=== PATIENT | female | born 1970 | race Hispanic/Latino ===

== ENCOUNTER 2024-01-05 11:10 | Emergency (ER) | payer SELFPAY ==
[2024-01-05] MEDS ORDERED: Fluorescein Opthalmic Strip ONE (12:59)
[2024-01-05] MEDS ORDERED: Proparacaine 0.5% Opth 15 ML BOT ONE (13:00)
== END 2024-01-05 13:35 | disposition home or self-care (01) ==
LOC: ERS 11:10
DX: H11.32 Conjunctival hemorrhage, left eye (principal); H10.9 Unspecified conjunctivitis
CPT/HCPCS: 99283